=== PATIENT | female | born 1995 | race Caucasian/White ===

== ENCOUNTER → 2021-07-21 12:47 | Outpatient (CLI) | payer OTHER, SELFPAY | PROVIDERS: Referring Provider Nurse Practitioner; Visit Provider Nurse Practitioner | DX: J31.2 Chronic pharyngitis (principal) | CPT/HCPCS: 87070 ==

== ENCOUNTER 2023-12-17 16:11 | Emergency (ER) | payer BC, SELFPAY ==
[2023-12-17 16:20] VITALS: BP 138/66; PULSE 65; RESP 16; TEMP 37; O2SAT 100; BMI 19.9
--- NOTE | 2023-12-17 16:24 | DI.RAD.S_ITS ---
PROCEDURE: XR CHEST 1V INDICATIONS: chest pain TECHNIQUE: One view of the chest was acquired. COMPARISON: None. FINDINGS: Surgical changes and devices: None. Lungs and pleura: Lungs are clear. No pleural effusions or pneumothorax. Mediastinum: Mediastinal contours appear normal. Heart size is normal. Bones and chest wall: No suspicious bony lesions. Overlying soft tissues appear unremarkable. IMPRESSION: No acute cardiopulmonary abnormality is seen. Dictated by: Salena Ken M.D. on 12/17/2023 at 17:29 Approved by: Salena Ken M.D. on 12/17/2023 at 17:29
[2023-12-17 16:48] LABS: Add Manual Diff / Slide Review NO; Basophils Absolute Auto 100 /uL (0-100); Basophils Percent Auto 0.9 % (0-2); Eosinophils Absolute Auto 100 /uL (0-450); Eosinophils Percent Auto 1.6 % (2-4); Hematocrit 41.6 % (36-46); Hemoglobin 14.1 g/dL (12.0-16.0); Lymphocytes Absolute Auto 2600 /uL (1100-4500); Lymphocytes Percent Auto 41.5 % (25-40); Mean Corpuscular HGB Conc 33.9 % (30-36); Mean Corpuscular Hemoglobin 27.4 PG (26-34); Monocytes Absolute Auto 500 /uL (0-900); Monocytes Percent Auto 7.8 % (3-14); Neutrophils Absolute Auto 3000 /uL (1500-7000); Neutrophils Percent Auto 48.2 % (50-75); Platelet Count 216 X10^3/uL (150-400); Red Blood Cell Count 5.13 X10^6/uL (4.0-5.2); Red Cell Distribution Width 13.2 % (11.6-14.8); White Blood Cell Count 6.3 X10^3/uL (4.5-11.0)
[2023-12-17 17:00] LABS: INR 1.1 (0.9-1.3); Prothrombin Time 12.8 SECONDS (9.4-12.5)
[2023-12-17 17:03] LABS: PTT Partial Thromboplastin Tim 32 SECONDS (25.1-36.5)
[2023-12-17 17:06] LABS: Alanine Aminotransferase 18 IU/L (<35); Albumin 4.6 g/dL (3.5-5.0); Albumin Globulin Ratio 1.2 (1.0-2.8); Alkaline Phosphatase 41 U/L (38-126); Aspartate Aminotransferase 24 IU/L (14-36); BUN Creatinine Ratio 20.2 (6-22); Bilirubin Total 0.5 mg/dL (0.2-1.3); Blood Urea Nitrogen 17 mg/dL (7-17); Calcium 9.6 mg/dL (8.4-10.2); Carbon Dioxide 24 mmol/L (22-32); Chloride 105 mmol/L (98-107); Creatine Kinase 47 U/L (30-135); Estimated Glomerular Filt Rate > 60 mL/min (>60); Globulin 3.9 g/dL (1.7-4.1); Glucose 88 mg/dL (70-100); HEMOLYSIS < 15 (0-50); Lipase 141 U/L (23-300); Magnesium 2.1 mg/dL (1.6-2.3); Potassium 3.6 mmol/L (3.4-5.1); Sodium 140 mmol/L (137-145); Total Protein 8.5 g/dL (6.3-8.2)
[2023-12-17 17:17] LABS: Troponin I < 0.012 ng/mL (0.01-0.034)
[2023-12-17 20:47] VITALS: BP 115/65; PULSE 55; RESP 16; O2SAT 98
--- NOTE | 2023-12-17 21:01 | ED.CHESTPAIN ---
HPI - Chest Pain General Chief Complaint: Chest Pain Stated Complaint: chest tightness, dizziness, pain upper arms and ba Time Seen by Provider: 12/17/23 20:49 Source: patient Mode of arrival: Ambulatory History of Present Illness HPI narrative: 28-year-old female with history of migraine headaches presents with several days of intermittent chest pain, shortness of breath, headaches. States that she is felt off balance and not quite herself. She states that this feels different from her usual migraines, and with the chest pain she wanted to make sure she was not having something like a heart attack. Related Data Home Medications Medication Instructions Recorded Confirmed No Known Home Medications 07/21/21 Allergies Allergy/AdvReac Type Severity Reaction Status Date / Time latex Allergy Unknown Verified 12/17/23 16:24 Review of Systems Review of Systems Narrative: Negative except as noted above Patient History Social History Smoking Status: Never smoker Smoking Status: Never smoker alcohol intake frequency: a few times a week Substance Use Type: marijuana Exam Initial Vital Signs Initial Vital Signs: Vital Signs Temperature 98.6 F 12/17/23 16:20 Pulse Rate 65 12/17/23 16:20 Respiratory Rate 16 12/17/23 16:20 Blood Pressure 138/66 12/17/23 16:20 Pulse Oximetry 100 12/17/23 16:20 Oxygen Delivery Method Room Air 12/17/23 16:20 Const: Awake, alert, no acute distress, nontoxic appearing Eyes: PERRL, EOMI, conjunctiva normal ENT: Atraumatic, dentition normal, mucous membranes moist Cardiac: regular rate, regular rhythm RESP: unlabored, clear bilaterally, no wheezing GI: Atraumatic, soft, nontender, nondistended, no rebound, no guarding MSK: Atraumatic, full range of motion, pulses equal Skin: Warm, Dry, intact, no rashes Neuro: AO x3, CN II-XII grossly intact, moves all extremities Psych: affect normal, mood normal, not suicidal, not homicidal Course Orders Ordered: ED Orders 12/17/23 16:24 XR chest 1V Stat EKG-12 Lead Stat 12/17/23 16:39 Complete Blood Count AUTO DIFF Stat Comprehensive Metabolic Panel Stat Lipase Stat Magnesium Stat PTT Partial Thromboplastin Jhonny Stat Prothrombin Time INR Stat Troponin & CK Cardiac Panel Stat 12/17/23 21:02 CT head/brain wo con Stat Discontinued Medications Aspirin (Aspirin 81 Mg Chew Tab) 324 mg PO NOW ONE Stop: 12/17/23 16:25 Last Admin: 12/17/23 20:37 Dose: Not Given Documented By: SRINIVAS Vital Signs Vital signs: Vital Signs - 8 hr 12/17/23 20:47 12/17/23 22:54 Pulse Rate 55 L 58 L Respiratory Rate 16 16 Blood Pressure 115/65 117/62 Pulse Oximetry 98 99 Oxygen Delivery Method Room Air Room Air MDM - Chest Pain Lab Data 12/17/23 16:39 12/17/23 16:39 Labs: Lab Results 12/17/23 Range/Units 16:39 WBC 6.3 (4.5-11.0) X10^3/uL RBC 5.13 (4.0-5.2) X10^6/uL Hgb 14.1 (12.0-16.0) g/dL Hct 41.6 (36-46) % MCV 81.0 (80-100) fL MCH 27.4 (26-34) PG MCHC 33.9 (30-36) % RDW 13.2 (11.6-14.8) % Plt Count 216 (150-400) X10^3/uL Neut % (Auto) 48.2 L (50-75) % Lymph % (Auto) 41.5 H (25-40) % [place] % (Auto) 7.8 (3-14) % Eos % (Auto) 1.6 L (2-4) % Baso % (Auto) 0.9 (0-2) % Neut # (Auto) 3000 (7544-3712) /uL Lymph # (Auto) 2600 (6182-9632) /uL [place] # (Auto) 500 (0-900) /uL Eos # (Auto) 100 (0-450) /uL Baso # (Auto) 100 (0-100) /uL PT 12.8 H (9.4-12.5) SECONDS INR 1.1 (0.9-1.3) APTT 32 (25.1-36.5) SECONDS Sodium 140 (137-145) mmol/L Potassium 3.6 (3.4-5.1) mmol/L Chloride 105 (98-107) mmol/L Carbon Dioxide 24 (22-32) mmol/L BUN 17 (7-17) mg/dL Creatinine 0.84 (0.52-1.04) mg/dL Estimated GFR > 60 (>60) mL/min BUN/Creatinine Ratio 20.2 (6-22) Glucose 88 (70-100) mg/dL Calcium 9.6 (8.4-10.2) mg/dL Magnesium 2.1 (1.6-2.3) mg/dL Total Bilirubin 0.5 (0.2-1.3) mg/dL AST 24 (14-36) IU/L ALT 18 (<35) IU/L Alkaline Phosphatase 41 (38-126) U/L Total Creatine Kinase 47 (30-135) U/L Troponin I < 0.012 (0.01-0.034) ng/mL Total Protein 8.5 H (6.3-8.2) g/dL Albumin 4.6 (3.5-5.0) g/dL Globulin 3.9 (1.7-4.1) g/dL Albumin/Globulin Ratio 1.2 (1.0-2.8) Lipase 141 (23-300) U/L Point of Care Testing Test Results Negative MDM Narrative Medical decision making narrative: Well-appearing patient with intermittent symptoms for the last several days. Upon the time of my evaluation patient is completely asymptomatic and has no complaints at this time. Since she states that her headache an off-balance sensation is different than her usual migraines we will order a head CT. Laboratory work shows no acute abnormalities. Troponin undetectable, no leukocytosis, electrolytes within normal limits. EKG with possible incomplete right bundle-branch block, no ST T wave changes. CT of the brain negative for acute findings. Chest x-ray shows no acute process. Patient counseled on results of labs imaging, uncertain etiology of her symptoms. Recommended close PCP follow up she continues to experience symptoms. Discharge Plan Departure Patient Disposition: Home Clinical Impression: Chest pain, Headache Instructions: DI for Migraine, DI for Chest Pain Activity Restrictions/Additional Instructions: Your labs and imaging today were normal. Your EKG did not show any concerning findings. I highly recommend following up with your primary care physician if you continue to experience symptoms. Prescriptions: No Action No Known Home Medications Referrals: Alice Duron FNP-[facility] [Primary Care Provider] - Stand Alone Forms: Patient Portal/API
--- NOTE | 2023-12-17 21:02 | DI.CT.S_ITS ---
PROCEDURE: CT HEAD/BRAIN WO CON INDICATIONS: IVY, FEELING OFF BALANCE, HX MIGRAINES, THIS IS DIFFERENT TECHNIQUE: Noncontrast 4.5 mm thick angled axial sections acquired from the foramen magnum to the vertex, with coronal and sagittal reformats. For radiation dose reduction, the following was used: automated exposure control, adjustment of mA and/or kV according to patient size. COMPARISON: None. FINDINGS: Image quality: Diagnostic. CSF spaces: Basal cisterns are patent. No extra-axial fluid collections. Ventricles are normal in size and shape. Brain: No midline shift. No intracranial masses or hemorrhage. Franco-white matter interface is normal. Skull and face: Calvarium and visualized facial bones are intact, without suspicious lesions. Sinuses: Visualized sinuses and mastoids are clear. IMPRESSION: No acute intracranial pathology. Dictated by: Blanche Rabago M.D. on 12/17/2023 at 23:04 Approved by: Blanche Rabago M.D. on 12/17/2023 at 23:05
[2023-12-17 22:54] VITALS: BP 117/62; PULSE 58; RESP 16; O2SAT 99
== END 2023-12-17 22:55 | disposition home or self-care (01) ==
PROVIDERS: Emergency Medicine; Emergency Provider Emergency Medicine; PCP Nurse Practitioner Family
DX: R07.9 Chest pain, unspecified (principal); R51.9 Headache, unspecified; R06.02 Shortness of breath
CPT/HCPCS: 36415; 70450; 71045; 80053; 81025; 82550; 83690; 83735; 84484; 85025; 85610; 85730; 93005; 93010; 99284